=== PATIENT | female | born 1995 | race Caucasian/White ===

== ENCOUNTER → 2016-08-02 | Outpatient (CLI) | payer OTHER ==
[~2016-08-02] MED LIST: BCPILLS PO
--- NOTE | 2016-08-02 15:54 | DIAGNOSTIC IMAGING REPORT ---
RIGHT ANKLE MIN 3 VIEWS CLINICAL HISTORY: Right ankle and foot pain. COMPARISON: None FINDINGS: Alignment of the right ankle is anatomic. Talar dome is intact. There is no fracture or suspicious lesion. IMPRESSION: No abnormality of the right ankle. Electronically signed by: Jose Elias Sanchez M.D. 08/02/2016 3:52 PM Dictated Date/Time: 08/02/2016 3:52 PM
--- NOTE | 2016-08-02 15:59 | DIAGNOSTIC IMAGING REPORT ---
RIGHT FOOT MIN 3 VIEWS CLINICAL HISTORY: Right foot pain COMPARISON: None. DISCUSSION: The bony mineralization appears normal. No fractures or dislocations are visualized. There are no erosive or destructive changes. IMPRESSION: Unremarkable conventional radiographic evaluation of the right foot Electronically signed by: Bret De La Cruz M.D. 08/02/2016 3:57 PM Dictated Date/Time: 08/02/2016 3:56 PM
== END | disposition home or self-care (01) ==
LOC: C.RDSM 15:11
PROVIDERS: ATTEND Family Medicine
DX: M25.571 Pain in right ankle and joints of right foot (principal)

== ENCOUNTER 2017-07-05 11:56 | Emergency (ER) | payer OTHER ==
[~2017-07-05] VITALS: Ht 157.5 cm; Wt 56.0 kg
[2017-07-05 12:08] VITALS: TEMP 36.8; Ht 157.5 cm; Wt 56.0 kg
[2017-07-05] MEDS ORDERED: CEPH500C2 PO (13:31)
[2017-07-05] MEDS ORDERED: SULF800T23 PO (13:31)
[2017-07-05 13:42] VITALS: BP 122/78; PULSE 82; O2SAT 99
--- NOTE | 2017-07-05 22:21 | EMERGENCY ROOM VISIT NOTE ---
ED Visit Note First contact with patient: 12:36 Chief Complaint: I have 2 lumps on my leg and upper lip. History of Present Illness: Ms. Sharp is a 21-year-old white female who ambulates into the ED complaining of skin eruptions on the left leg and upper lip. Historically patient reports a proximally 2 years ago she had an abscess on her mid thigh and when an I&D procedure was performed she was diagnosed with MRSA. She goes on to report approximately one month ago she noted 2 small lumps on her left thigh; one in the popliteal area and one over the proximal/lateral thigh. She was seen at [facility] she reports the lesion on the back of the knee was excised. She was prescribed doxycycline but has not receive any additional follow-up; she does report she was not able to tolerate doxycycline because of nausea and vomiting and never finished the prescription. She was encouraged to follow-up with dermatology but was never able to make an appointment. Additionally she reports over last 3-4 days she had noticed the formation of a bump over the lateral aspect of the upper lip. Currently she reports that she is having pain in all these 3 areas. She describes her pain as a sharp sensation. She rates her discomfort 8/10. Her pain is nonradiating. Her pain worsens with palpation. She has not identified any alleviating factors related to the pain. She has not taken medication for pain prior to arrival at the hospital. She denies any associated symptoms including fevers, chills, sweats, other skin eruptions, recent skin breaks in this area, upper respiratory tract symptoms, shortness of breath, decreased appetite, nausea/vomiting, left lower extremity weakness/numbness/tingling. Review of Systems: As noted above in history of present illness. 8 body systems were reviewed and found to be negative as noted above. Past Medical History: As noted above. Current Medications: control. Allergies to Medications: A shunt denies. Social History: Patient is currently University student; she feels safe in her home environment; she denies tobacco use. Physical Examination: Vital Signs: Date Time Temp Pulse Resp B/P (MAP) Pulse Ox O2 Delivery O2 Flow Rate FiO2 07/05/17 13:42 82 18 122/78 99 07/05/17 12:08 36.8 76 18 128/85 99 Room Air GENERAL: 21-year-old female in no acute distress, nontoxic-appearing, afebrile and hemodynamically stable. NEUROLOGICAL: Awake, alert and oriented to person, place and time. Answering questions appropriately and following commands. Normal gait. Good hand eye coordination. No focal motor or sensory deficits. SKIN: Warm, dry and pink. Face: Over the lateral aspect of the upper lip excluding the vermilion border patient has a subcentimeter mildly erythematous papule lesion. The lesion is indurated but is not fluctuant. There is no lymphangitis. Left Thigh: Over the proximal/lateral aspect of the left thigh patient has a flat scaly minimally erythematous lesion measuring approximately 1.3 cm. Lesion is indurated but not fluctuant and there is no lymphangitis. Over the posterior thigh in the popliteal space patient has a some centimeter scar tissue from her previous excision procedure. Is not erythematous and there is no lymphangitis. HEENT: Atraumatic and normocephalic. Right Upper Lip: Please note soft tissue description above. This appears to be a normal papule. I do not any pre-she ate any signs of infection but the patient is concerned about possible MRSA infection from her previous. The lesion is minimally tender to palpation. There is no local lymphadenopathy. The oral cavity is moist and pink and there is no intraoral lesions noted. THORAX: Lungs sounds are clear to auscultation and equal bilaterally with symmetrical chest wall. ABDOMEN: Flat, soft and nontender. Positive bowel sounds in all quadrants. EXTREMITIES: Moves all extremities well on command and with purpose. All distal neurovascular statuses are intact and equal bilaterally. Left Thigh: No lesion descriptions above. The lesion on the anterior thigh is moderately tender to palpation. There does not appear to be any infectious or foreign bodies in this area. As previously noted there is no lymphangitis and it is only mildly erythematous I do not appreciate any fluctuance to this lesion. Over the posterior thigh there is a scar tissue from her previous excision. Once again it is not fluctuant and there is no signs of infection. She has full range of motion in all movements of the hip and knee. ED Course: Patient is assessed as noted above. Patient's medication list was reviewed. Patient was prescribed Keflex and Bactrim in case of infection at the patient's request. Patient was educated about today's findings and instructed on her treatment plan ; she verbalizes understanding and agreement with this plan. Clinical Impression: Skin lesions. Possible early abscess. Disposition: Patient discharged home in stable condition; prior to departure she was reassessed and subjectively reported she was feeling better and rated her discomfort 5/10. Plan: Patient was encouraged to alternate ibuprofen and acetaminophen every 3 hours for persistent pain or fevers. Patient was prescribed Keflex 500 mg 4 times a day and Bactrim DS 2 times a day for 10 days for possible infection. Patient was encouraged to follow-up at [facility] or return to the ED in 36-48 hours for recheck; patient does report she is going out of town over the weekend will not be back till Sunday morning so I encouraged her to follow-up at that time. Patient was educated on signs of worsening infection and encouraged to return to the local ER for worsening infection or any new/concerning symptoms.
== END 2017-07-05 13:44 | disposition home or self-care (01) ==
LOC: C.EDB 11:59 → C.EDD 13:44
DX: L98.9 Disorder of the skin and subcutaneous tissue, unspecified (principal)

== ENCOUNTER 2017-07-15 12:00 | Emergency (ER) | payer OTHER ==
[~2017-07-15] VITALS: Ht 157.5 cm; Wt 56.8 kg
[~2017-07-15 12:00] MED LIST changes: +CEPH500C2 PO; +SULF800T23 PO
[2017-07-15 12:07] VITALS: TEMP 36.9; Ht 157.5 cm; Wt 56.8 kg
[2017-07-15] MEDS ORDERED: DIPH25CA65 PO (12:57)
[2017-07-15] MEDS ORDERED: DiphenhydrAMINE HCL 50 MG/ML VIAL IM STA (13:03)
[2017-07-15] MEDS ORDERED: RANITIDINE HCL 150 MG TAB PO STA (13:03)
[2017-07-15] MEDS ORDERED: DEXAMETHASONE **PF** INJ 10 MG/ML VIAL IM ONE (13:15)
--- NOTE | 2017-07-15 13:56 | DIAGNOSTIC IMAGING REPORT ---
R EXTREMITY NONVASCULAR LIMITED CLINICAL HISTORY: 21 years-old Female presenting with Eval L anterior thigh mass - possible abscess?. TECHNIQUE: Real-time grayscale ultrasound imaging of the right anterior thigh was performed for a focused examination at the site of clinical concern. Color Doppler was also performed. COMPARISON: None. FINDINGS: At the site of clinical concern, a focal laminar hypoechoic region noted subjacent to the cutis and superficial to the subcutaneous fat with posterior shadowing suggesting laminar fluid. Collection is diminutive and measures 10 mm in length x 7 mm in width x 1 mm in thickness. No significant hyperemia. Mild hyperechogenicity of the subjacent subcutaneous fat. IMPRESSION: 1. Limited laminar fluid superficial to the subcutaneous fat. The collection is too small to characterize as a possible abscess. This could also represent a small hematoma. Surrounding inflammatory change could suggest developing infection or trauma. Electronically signed by: Simone Stern M.D. 07/15/2017 1:54 PM Dictated Date/Time: 07/15/2017 1:53 PM
[2017-07-15] MEDS ORDERED: HYDR1CAP85 PO (14:31)
[2017-07-15 14:38] VITALS: BP 114/76; PULSE 103; O2SAT 100
--- NOTE | 2017-07-15 16:27 | EMERGENCY ROOM VISIT NOTE ---
History First contact with patient: 12:45 Chief Complaint: ALLERGIC REACTION Stated Complaint: HIVES,FEVER, LUMP ON LEG Nursing Triage Summary: hives History of Present Illness The patient is a 21 year old female who presents to the Emergency Room with complaints of hives and itchiness due to an allergic reaction to this off of. The patient reports that she was recently treated with Keflex and Bactrim antibiotics for a lump on her right thigh. The patient reports that she was provided a prescription for Keflex, which she completed 2 days ago. She is continuing with Bactrim DS for a 10 day total treatment. The patient reports that she did speak with her mother who reports that she has an allergy to sulfa medications that she did not know about. She has taken Keflex in the past without adverse reaction. The patient reports that she did take Benadryl last evening which helps with the itching. She woke up this morning with hives. She reports that the lump on her right thigh has improved in appearance in size , but is still uncomfortable. She has had prior skin lesions with history of MRSA. She cannot tolerate doxycycline which causes nausea and vomiting. She does not recall taking clindamycin in the past. She denies any lip/tongue/ throat swelling, throat tightness, chest pain, palpitations or shortness of breath. Review of Systems HEENT: Denies dizziness, visual problems, hearing loss, tinnitus. Denies difficulty swallowing or oral lesions. PULMONARY: Denies cough, shortness of breath, sputum production or hemoptysis. CARDIOVASCULAR: Denies chest pain, palpitations, dyspnea on exertion, orthopnea or peripheral edema. GASTROINTESTINAL: Denies diarrhea, constipation, nausea, vomiting, or abdominal pain. GENITOURINARY: Denies dysuria, frequency, urgency or nocturia. NEUROLOGIC: Denies history of epilepsy, CVA, TIA or chronic headaches. MUSCULOSKELETAL: Denies history of joint tenderness/swelling. SKIN: Denies rashes or lesions. PSYCHIATRIC: Denies history of depression or mental illness. ENDOCRINE: Denies history of diabetes or thyroid disorders. Past Medical/Surgical History Medical Problems: (1) Lumbago (2) Sacroiliitis, not elsewhere classified Surgical Problems: (1) No history of previous surgery Family History Unremarkable Social History Smoking Status: Never Smoker Alcohol Use: occasionally Marital Status: single Occupation Status: [employer] student Current/Historical Medications Scheduled Control Pills ( Control Pills), 1 TAB PO QPM Diphenhydramine Hcl (Benadryl Allergy), 1 CAP PO HS Sulfa/Trimethoprim (Bactrim Ds 800MG/160MG), 1 TAB PO BID Scheduled PRN Hydroxyzine Pamoate (Vistaril), 25-50 MG PO Q6H PRN for pruritis Physical Exam Vital Signs Date Time Temp Pulse Resp B/P (MAP) Pulse Ox O2 Delivery O2 Flow Rate FiO2 07/15/17 14:38 103 18 114/76 100 Room Air 07/15/17 14:11 83 16 121/71 97 Room Air 07/15/17 12:33 97 Room Air 07/15/17 12:07 36.9 100 16 124/63 97 Room Air Physical Exam CONSTITUTIONAL: Healthy and well nourished. Alert and oriented X 3 with positive affect. Patient appears in mild discomfort from pruritus. HEENT: Normocephalic, atraumatic. Pupils equal, round and reactive. Ears and nares are clear. OROPHARYNX: No evidence for angioedema, posterior pharyngeal erythema/edema or tonsillar hypertrophy. NECK: Full active range of motion without discomfort. RESPIRATORY: Clear to auscultation bilaterally with no wheezing, crackles, rhonchi or stridor. CARDIOVASCULAR: Regular rate and rhythm with no murmurs, rubs or gallops. MUSCULOSKELETAL: Full range of motion of all joints without discomfort. INTEGUMENTARY: Examination shows minimal hives that guanaco with pressure. She has no open wounds, excoriations or skin sloughing. Examination of the right anterior lateral thigh shows a marble-sized nodule that is minimally erythematous. Scaling is noted over the epidermis. No fluctuance or drainage noted. It is mildly tender to palpation. NEUROLOGIC: No focal neurologic deficits noted. Medical Decision & Procedures ER Provider Diagnostic Interpretation: Ultrasound of the right lateral thigh does not show any obvious fluid collection consistent with abscess. Radiologist report is as follows: R EXTREMITY NONVASCULAR LIMITED CLINICAL HISTORY: 21 years-old Female presenting with Eval L anterior thigh mass - possible abscess?. TECHNIQUE: Real-time grayscale ultrasound imaging of the right anterior thigh was performed for a focused examination at the site of clinical concern. Color Doppler was also performed. COMPARISON: None. FINDINGS: At the site of clinical concern, a focal laminar hypoechoic region noted subjacent to the cutis and superficial to the subcutaneous fat with posterior shadowing suggesting laminar fluid. Collection is diminutive and measures 10 mm in length x 7 mm in width x 1 mm in thickness. No significant hyperemia. Mild hyperechogenicity of the subjacent subcutaneous fat. IMPRESSION: 1. Limited laminar fluid superficial to the subcutaneous fat. The collection is too small to characterize as a possible abscess. This could also represent a small hematoma. Surrounding inflammatory change could suggest developing infection or trauma. Medications Administered Medications (Trade) Dose Ordered Sig/Kath Route Start Time Stop Time Status Last Admin Dose Admin Ranitidine HCl (zANTac TAB) 150 mg ONE STAT PO 07/15/17 13:03 07/15/17 13:06 DC 07/15/17 13:28 150 MG Diphenhydramine HCl (Benadryl Inj) 50 mg ONE STAT IM 07/15/17 13:03 07/15/17 13:06 DC 07/15/17 13:28 50 MG Dexamethasone Sodium Phosphate (Dexamethasone Inj Pf) 10 mg NOW ONCE IM 07/15/17 13:15 07/15/17 13:16 DC 07/15/17 13:28 10 MG ED Course Patient history and physical exam were performed. Nurse's notes were reviewed. Vital signs were reviewed and were normal. The patient has a mild urticarial presentation. Do suspect that this is an allergic reaction to the Bactrim. The patient reports that her mother told her that she has an allergy to Bactrim that she did not know of. The patient was administered IM Benadryl and Decadron , along with oral Zantac. Ultrasound of the right thigh lesion does not show any evidence for abscess formation. It appears that lesion is improving in appearance, suspecting this was an early abscess formation or cellulitis. At this point, I do not feel that further antibiotic treatment is necessary. I did suggest that she follow-up with a carpenter wooden tank erecting since she has recurrent infections. She was provided a prescription for hydroxyzine if needed for worse itch. She was more not to drink alcohol or drive while taking Benadryl or hydroxyzine. She may also take Zantac in addition to Benadryl. The patient was happy with plan of care, voiced understanding of all discharge instructions , and denied any pruritus or pain at the time of discharge. Medical Decision [place] Drug Monitoring Program Search Results: patient reviewed within database, no issues identified Blood Pressure Screening Patient's blood pressure: Normal blood pressure Impression Primary Impression: Adverse reaction to drug Additional Impression: Mass of right thigh Departure Information Dispostion Home / Self-Care Condition GOOD Prescriptions Hydroxyzine Pamoate (VISTARIL) 25 Mg Cap 25-50 MG PO Q6H Y for pruritis, #20 CAP Prov: Theron Bay PA 07/15/17 Forms HOME CARE DOCUMENTATION FORM, IMPORTANT VISIT INFORMATION Patient Instructions My [facility] Additional Instructions Suggest taking Benadryl 25-50 mg every 6-8 hours. Remove that Benadryl can make you drowsy. Also suggest taking Zantac 150 mg twice daily for additional relief. You have been prescribed hydroxyzine for worse itch. This medication also make you drowsy, but is effective for itch control. Keep cool. Intermittently apply ice to worse areas of itching. Return to the emergency department for any concerning skin changes. Suggest follow-up with a carpenter wooden tank erecting (Dr. Deluca) for further reevaluation and management. Given your history of MRSA, if you have any additional skin infections, we recommend clindamycin antibiotics for treatment. Problem Qualifiers Primary Impression: Adverse reaction to drug Encounter type: initial encounter Qualified Codes: T88.7XXA - Unspecified adverse effect of drug or medicament, initial encounter
== END 2017-07-15 14:39 | disposition home or self-care (01) ==
LOC: C.EDB 12:04
DX: L50.9 Urticaria, unspecified (principal); T37.0X5A Adverse effect of sulfonamides, initial encounter; R22.41 Localized swelling, mass and lump, right lower limb; Z79.3 Long term (current) use of hormonal contraceptives

== ENCOUNTER 2017-09-04 01:06 | Emergency (ER) | payer OTHER ==
[~2017-09-04] VITALS: Ht 157.5 cm; Wt 54.1 kg
[~2017-09-04 01:06] MED LIST changes: -CEPH500C2 PO; +DIPH25CA65 PO; -SULF800T23 PO
[2017-09-04 01:17] VITALS: TEMP 36.7; Ht 157.5 cm; Wt 54.1 kg
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
[2017-09-04] MEDS ORDERED: AZITHROMYCIN 250 MG TAB PO STA (04:29)
[2017-09-04] MEDS ORDERED: CEFTRIAXONE SOD 350MG/ML 1 GM VIAL IM STA (04:30)
[2017-09-04] MEDS ORDERED: HYDR25CA PO (04:50)
[2017-09-04 05:08] VITALS: BP 113/63; PULSE 83; O2SAT 100
== END 2017-09-04 05:10 | disposition home or self-care (01) ==
LOC: C.EDB 01:09 → C.EDC 05:10
DX: T74.21XA Adult sexual abuse, confirmed, initial encounter (principal); T36.4X2A Poisoning by tetracyclines, intentional self-harm, initial encounter; X58.XXXA Exposure to other specified factors, initial encounter; Z79.3 Long term (current) use of hormonal contraceptives; Z79.899 Other long term (current) drug therapy; Z88.2 Allergy status to sulfonamides; Z88.1 Allergy status to other antibiotic agents; Y07.03 Male partner, perpetrator of maltreatment and neglect; Y99.8 Other external cause status

== ENCOUNTER 2017-09-05 23:53 | Emergency (ER) | payer OTHER ==
[~2017-09-05] VITALS: Ht 157.5 cm; Wt 53.8 kg
[~2017-09-05 23:53] MED LIST changes: +HYDR25CA PO
[2017-09-05 23:57] VITALS: TEMP 36.8; Ht 157.5 cm; Wt 53.8 kg
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
[2017-09-06 00:44] LABS: BASO % 0.4 %; BASO ABS # 0.05 K/uL (0-0.2); EOS % 1.4 %; EOS ABS # 0.16 K/uL (0-0.5); HEMATOCRIT 40.5 % (37-47); HEMOGLOBIN 14.1 g/dL (12.0-16.0); IG# 0.04 K/uL (0.00-0.02); LYMPH % 37.3 %; LYMPH ABS # 4.35 K/uL (1.2-3.4); MEAN CELL VOLUME 90.2 fL (80-100); MEAN CORPUSCULAR HEMOGLOBIN 31.4 pg (25-34); MEAN CORPUSCULAR HGB CONC 34.8 g/dl (32-36); MEAN PLATELET VOLUME 9.5 fL (7.4-10.4); MONO % 8.2 %; MONO ABS # 0.96 K/uL (0.11-0.59); NEUT % 52.4 %; NEUT ABS # 6.09 K/uL (1.4-6.5); PLATELET COUNT 330 K/uL (130-400); RED CELL DISTRIBUTION WIDTH CV 13.8 % (11.5-14.5); RED CELL DISTRIBUTION WIDTH SD 45.5 fL (36.4-46.3); WHITE BLOOD COUNT 11.65 K/uL (4.8-10.8)
[2017-09-06 01:04] LABS: ALBUMIN 3.8 gm/dl (3.4-5.0); BLOOD UREA NITROGEN 10 mg/dl (7-18); CALCIUM 9.1 mg/dl (8.5-10.1); CARBON DIOXIDE 25 mmol/L (21-32); CREATININE 0.82 mg/dl (0.60-1.20); GLUCOSE 83 mg/dl (70-99); POTASSIUM 3.5 mmol/L (3.5-5.1); SODIUM 138 mmol/L (136-145)
[2017-09-06 01:15] LABS: ALKALINE PHOSPHATASE 51 U/L (45-117); ALT/SGPT 19 U/L (12-78); AST/SGOT 14 U/L (15-37); TOTAL PROTEIN 7.7 gm/dl (6.4-8.2)
[2017-09-06 05:38] VITALS: BP 109/76; PULSE 81; O2SAT 98
== END 2017-09-06 05:40 | disposition home or self-care (01) ==
LOC: C.EDB 23:55 → C.EDA 09-06 05:40
DX: F43.0 Acute stress reaction (principal); T76.21XA Adult sexual abuse, suspected, initial encounter; T76.11XA Adult physical abuse, suspected, initial encounter; T36.4X2A Poisoning by tetracyclines, intentional self-harm, initial encounter; Z79.3 Long term (current) use of hormonal contraceptives; Z88.8 Allergy status to other drugs, medicaments and biological substances; Z88.2 Allergy status to sulfonamides